=== PATIENT | female | born 1985 | race Caucasian/White ===

== ENCOUNTER 2019-12-16 15:29 | Emergency (ER) | payer OTHER ==
[~2019-12-16] VITALS: Ht 162.6 cm; Wt 61.2 kg
--- NOTE | 2019-12-16 15:42 | NUR ---
[email or web address], medical screening exam in progress
[2019-12-16] MEDS ORDERED: HYDROCODONE/APAP 5-325MG TABLET ONE (15:50)
[2019-12-16] MEDS ORDERED: LET TOPICAL SOLUTION 8 ML UDC ONE (15:50)
[2019-12-16] MEDS ORDERED: HYDROCODONE/APAP 5-325MG TABLET PO ONE (16:00)
[2019-12-16] MEDS ORDERED: LET TOPICAL SOLUTION 8 ML UDC TP ONE (16:00)
--- NOTE | 2019-12-16 16:03 | NUR ---
Discharge instructions were given to patient. Patient verbalized understanding and compliance to discharge instructions. Discharged patient in stable condition. Patient left ER with brisk steady gait.
== END 2019-12-16 16:03 | disposition home or self-care (01) ==
LOC: ER 15:31
DX: L72.3 Sebaceous cyst (principal)
CPT/HCPCS: A4663

== ENCOUNTER 2024-09-04 15:33 | Emergency (ER) | payer MEDICAID, OTHER | END 2024-09-04 16:30 | disposition left against medical advice (07) | LOC: ER 15:33 | DX: S89.90XA Unspecified injury of unspecified lower leg, initial encounter (principal); Z53.21 Procedure and treatment not carried out due to patient leaving prior to being seen by health care provider; X58.XXXA Exposure to other specified factors, initial encounter; Y93.89 Activity, other specified; Y92.89 Other specified places as the place of occurrence of the external cause; Y99.8 Other external cause status ==